=== PATIENT | female | born 1935 | race Caucasian/White ===

== ENCOUNTER 2024-02-25 11:50 | Emergency (ER) | payer MEDICARE, SELFPAY ==
[2024-02-25] VITALS (8 sets, daily range): BP systolic 142–184; BP diastolic 51–90; PULSE 60–66; BMI 26.7
[2024-02-25 12:21] LABS: % Basophils 0.3 % (0-2); % Eosinophils 2.6 % (0-6); % Immature Granulocytes 0.3 % (0-0.5); % Lymphocytes 9.2 % (20.5-51.1); % Monocytes 8.5 % (1.7-9.3); % Neutrophils 79.1 % (42.2-75.2); Absolute Eosinophils 0.2 10^3/uL (0-0.7); Absolute Lymphocytes 0.8 10^3/uL (1.2-3.4); Absolute Monocytes 0.7 10^3/uL (0.1-0.6); Absolute Neutrophils 6.9 10^3/uL (1.4-6.5); Hematocrit 37.5 % (37.0-47.0); Hemoglobin 12.8 g/dL (12.0-16.0); Mean Corp Hgb Conc. 34.1 g/dL (33.0-37.0); Mean Corpuscular Hgb 31.4 pg (27.0-31.0); Mean Corpuscular Volume 91.9 fL (81.0-99.0); Mean Platelet Volume 8.6 fL (7.4-10.4); Nucleated Red Blood Cells % 0 %; Platelet Count 355 10^3/uL (130-400); Red Blood Cell Count 4.08 10^6/uL (4.20-5.40); Red Cell Dist. Width 12.3 % (11.5-14.5); White Blood Cell Count 8.7 10^3/uL (4.8-10.8)
[2024-02-25 12:50] LABS: ALT (SGPT) 14 U/L (0-35); AST (SGOT) 29 U/L (14-36); Albumin 4.3 g/dl (3.5-5.0); Alkaline Phosphatase 64 U/L (38-126); Blood Urea Nitrogen 24 mg/dl (7-17); Calcium 9.6 mg/dl (8.4-10.2); Carbon Dioxide 24 mmol/L (22-30); Chloride 97 mmol/L (98-107); Estimated Creatinine Clearance 44 ml/min; Glucose 85 mg/dl (70-99); Potassium 4.4 mmol/L (3.5-5.1); Sodium 134 mmol/L (135-145); Total Bilirubin 0.5 mg/dl (0.2-1.3); Total Protein 6.7 g/dl (6.3-8.2); eGFR > 60.00
--- NOTE | 2024-02-25 13:16 | ED.GENMED ---
History of Present Illness
<Rosalva Conway PA-C - Last Filed: 02/27/24 08:43>
General
Chief Complaint: Fainting/Passed Out
Source: patient
Exam Limitations: none
Time Seen by Provider: 02/25/24 12:33
Nursing documentation reviewed up to this point in time: agreed with
History of Present Illness
History of Present Illness:
pt is a 88 y/o F with HTN, HLD, sees a lead pl sql developer at [place], no interventions previously
edema on furosemide 10 mg
here after syncope
says this monrning she was fasting for blood work
she did eat breakfast after but didn't really drink much liquid
then had 2 phone calls and bernabe tto have her hair cut
sat inthe chair, had her hair fully cut and was going to stand up and woke up to the EMS crew. she had no warning of passing out
says she passed out a few times a few years ago related to being on maxide. she no longer is on it
she is due for echo from her lead pl sql developer next week
she doesn't have any chronic heart conditions, heart block etc
she denies black stool, cp, headache, vomiting, dizziness.
she has not had any edema, weight gain
Past History
<Rosalva Conway PA-C - Last Filed: 02/27/24 08:43>
Past History
ED Past Medical History: GERD, HTN, Hypercholesterolemia and Other (Hiatel hernia)
ED Past Surgical History: Orthopedic (Bilateral knee replacements), Tonsilectomy and Other (Hiatal hernia, bilateral cataracts)
Social History
Tobacco: Former smoker
Alcohol: Occasional
Drug: None
Personal:
Living: assisted living ([facility])
Review of Systems
<Rosalva Conway PA-C - Last Filed: 02/27/24 08:43>
Review of Systems
Allergies reviewed?: Yes
All Other Systems: Not applicable
Phy Exam
<Rosalva Conway PA-C - Last Filed: 02/27/24 08:43>
Physical Exam
Physical Exam:
GENERAL: Alert , in no apparent distress, well appearing
EYE: pupils equal and reactive
NECK: Supple
ENT: o/p clr, mmm.
CARDIAC: Regular rate and rhythm .subtle 2/6 murmur; no JVD
LUNGS: Clear breath sounds bilaterally, no acute respiratory distress, no wheezes/rales/rhonchi
ABDOMEN: Soft, without focal tenderness, no r/g, no cvat, normal bowel sounds
heme neg light brown stool
NEUROLOGICAL: Alert and oriented, no focal neuro deficits
SKIN: Warm and dry, skin intact.
MUSCULOSKELETAL: No edema, well perfused. neg jonah's sign
PSYCH: Normal and appropriate interaction.
Course
<Rosalva Conway PA-C - Last Filed: 02/27/24 08:43>
Orders/Labs/Results
Orders:
Orders
02/25/24 11:57
EKG [Electrocardiogram (*1)] Urgent
Reason for Study: Tachycardia
EKG- Treatment ONCE
02/25/24 12:04
Complete Blood Count/With Diff Urgent
Comprehensive Metabolic Panel Urgent
02/25/24 13:26
Orthostatic VS- Treatment ONCE
0.9% Sodium Chloride 500 ml [Nss] 500 ml IV BOLUS
CR Chest - 2 Views Urgent
Comment:
Reason For Exam: syncope
02/25/24 13:32
NT-proBNP Urgent
Abnormal Lab Results
02/25/24
12:04
RBC 4.08 L 10^6/uL
(4.20-5.40)
MCH 31.4 H pg
(27.0-31.0)
Absolute Neuts (auto) 6.9 H 10^3/uL
(1.4-6.5)
Absolute Lymphs (auto) 0.8 L 10^3/uL
(1.2-3.4)
Absolute Monos (auto) 0.7 H 10^3/uL
(0.1-0.6)
Neutrophils % 79.1 H %
(42.2-75.2)
Lymphocytes % 9.2 L %
(20.5-51.1)
Sodium 134 L mmol/L
(135-145)
Chloride 97 L mmol/L
(98-107)
BUN 24 H mg/dl
(7-17)
02/25/24 12:04
02/25/24 12:04
Vital Signs
Initial and Last Documented VS:
Initial Vital Signs
BP
179/51
02/25/24 11:52
Last Documented Vital Signs
Temp Pulse Resp BP Pulse Ox
97.7 F 63 23 157/68 96
02/25/24 11:53 02/25/24 14:45 02/25/24 14:45 02/25/24 14:20 02/25/24 14:45
<Ambrosio Padron, DO - Last Filed: 02/25/24 13:36>
Orders/Labs/Results
Orders:
Orders
02/25/24 11:57
EKG [Electrocardiogram (*1)] Urgent
Reason for Study: Tachycardia
EKG- Treatment ONCE
02/25/24 12:04
Complete Blood Count/With Diff Urgent
Comprehensive Metabolic Panel Urgent
02/25/24 13:26
Orthostatic VS- Treatment ONCE
0.9% Sodium Chloride 500 ml [Nss] 500 ml IV BOLUS
CR Chest - 2 Views Urgent
Comment:
Reason For Exam: syncope
02/25/24 13:32
NT-proBNP Urgent
Abnormal Lab Results
02/25/24
12:04
RBC 4.08 L 10^6/uL
(4.20-5.40)
MCH 31.4 H pg
(27.0-31.0)
Absolute Neuts (auto) 6.9 H 10^3/uL
(1.4-6.5)
Absolute Lymphs (auto) 0.8 L 10^3/uL
(1.2-3.4)
Absolute Monos (auto) 0.7 H 10^3/uL
(0.1-0.6)
Neutrophils % 79.1 H %
(42.2-75.2)
Lymphocytes % 9.2 L %
(20.5-51.1)
Sodium 134 L mmol/L
(135-145)
Chloride 97 L mmol/L
(98-107)
BUN 24 H mg/dl
(7-17)
02/25/24 12:04
02/25/24 12:04
Vital Signs
Initial and Last Documented VS:
Initial Vital Signs
BP
179/51
02/25/24 11:52
Last Documented Vital Signs
Temp Pulse Resp BP Pulse Ox
97.7 F 63 23 157/68 96
02/25/24 11:53 02/25/24 14:45 02/25/24 14:45 02/25/24 14:20 02/25/24 14:45
<Rosalva Conway PA-C - Last Filed: 02/27/24 08:43>
MDM/Problems Addressed
Differential Diagnosis Includes:
syncope, , dehydration, vasovagal, heart block
MDM/Problems Addressed:
88 y/o F
h/o htn, hld ,CKD
no cad
here after syncope event this morning after sitting in a chair getting her hair cut
it seemed to occur just as she was giong to stand up from sitting
she had no preceding symptoms
no injury, she passed out into the chair; she now feels well
she didn't drink much liquid with breakfast
pt has passed out preiously related to maxide dose and is no longer on that
she has appt for echo for routine purposes next week at [place]
she is asymptoamtic now
she never had chest pain
no edema
looks well
heme neg brown stool
bun elevated
likely prerenal azotemia
seen by ed attending
ekg intiially in the field looked possibly concerning for heart block - but then ran strips which looked regular, 1st degree block, pacs
no heart block on ekg here
pt is very eager to go home
will give small bolus of fluids
orthostatics
cxr and if neg d/c
<Rosalva Conway PA-C - Last Filed: 02/27/24 08:43>
*Critical Care Note
Total Time (30-74mins, 75-104mins- exclusive of procedures): Not Applicable
ED Attending Note
<Rosalva Conway PA-C - Last Filed: 02/27/24 08:43>
-
Portions of this chart may have been created with voice recognition software.� Occasional wrong word or��sound alike� substitutions may have occurred due to the inherent limitations of voice recognition software.
<Ambrosio Padron DO - Last Filed: 02/25/24 13:36>
ED Attending Note
Patient seen and examined by attending physician: Yes
I performed the substantive portion of visit, reviewed & personally made and approve the management plan that is documented in note by myself or TAVARES.: Yes
I performed a history and physical exam of patient and discussed management with resident, I reviewed resident's note and agree with documented findings and plan of care.: Yes
ED Attending Note:
I evaluated patient at bedside and reviewed EKGs. She does have a very soft murmur in the right upper sternal border suggestive of aortic stenosis�she has an upcoming echo through [facility]. She is not known to any of the lead pl sql developer Josie.
EKG is relatively unremarkable with no evidence of block and there is no evidence of block on the cardiac monitoring throughout her stay in the emergency department. She is very eager to go home and is very well-appearing.
Discharge Plan
Departure
Patient Disposition: Home (Routine Discharge)
Date of Disposition: 02/25/24
Time of Disposition: 14:39
Patient with high blood pressure during this ER visit?: No
Condition: Fair
Covid-19: Not Applicable
Discharge Problem:
Syncope
Instructions: Syncope (Fainting) (DC)
Prescriptions:
No Action
esomeprazole magnesium 40 MG capsule,delayed release(DR/EC)
40 mg PO DAILY
psyllium husk (aspartame) [Metamucil Fiber Singles] 1 PACKET powder in packet
1 packet PO DAILY
multivitamin with folic acid [Tab-A-Mikey] 1 TABLET tablet
1 tab PO DAILY
sennosides-docusate sodium 1 TABLET tablet
1 tab PO BID 0RF
amlodipine 5 MG tablet
5 mg PO DAILY 0RF
calcium carbonate [Antacid (calcium carbonate)] 1 TABLET tablet,chewable
2 tab PO Q4HPRN PRN (Reason: indigestion) 0RF
oxycodone 5 MG tablet
5 mg PO Q4HPRN PRN (Reason: moderate/severe pain) 0RF
furosemide [Lasix] 20 MG tablet
10 mg PO DAILY 30 Days Qty: 30 0RF
Referrals:
Gareth Bach MD [Family Provider] - Follow up in 2-3 days
Activity Restrictions/Additional Instructions:
WE ARE NOT SURE WHY YOU PASSED OUT
YOU COULD BE MILDLY DEHYDRATED
STAY HYDRATED TODAY/EAT WELL
YOU SHOULD CALL YOUR DOUGH PANNER TO BE SEEN SOON
RETURN TO THE ER FOR ANY RECURRENT EPISODES. CHEST PAIN, SHORTNESS OF BREATH OR ANY CONCERNS.
Interventions
Interventions:
*Risk Screen - Suicide Last Done: 02/25/24 11:53
*General Assessment Last Done: 02/25/24 11:53
*Neglect/Abuse Screening Last Done: 02/25/24 11:53
ED- Fall Risk Assessment Last Done: 02/25/24 11:53
*ED COVID-19 Vaccine History Last Done: 02/25/24 11:53
*Nursing Disposition Last Done: 02/25/24 16:28
ED- Cardiac Assessment Last Done: 02/25/24 12:06
ED- Neurological Assessment Last Done: 02/25/24 11:59
Discharge Date and Time
Discharge Date/Time: 02/25/24 16:29
Print Language: SOMALI
[2024-02-25] MEDS: NSS 500 IV (13:34)
[2024-02-25 14:07] LABS: NT-proBNP 377 pg/ml
== END 2024-02-25 16:29 | disposition home or self-care (01) ==
LOC: EMR 11:50
PROVIDERS: Emergency Medicine; Physician Assistant; EMERGENCY PHYSICIAN Emergency Medicine; FAMILY PHYSICIAN Internal Medicine Geriatric Medicine
DX: R55 Syncope and collapse (principal); I10 Essential (primary) hypertension; E78.00 Pure hypercholesterolemia, unspecified; Z87.891 Personal history of nicotine dependence
CPT/HCPCS: 99285; 71046; 80053; 83880; 85025; 93005

== ENCOUNTER 2024-05-11 15:34 | Inpatient (IN) | payer MEDICARE, SELFPAY ==
[2024-05-11] VITALS (8 sets, daily range): BP systolic 142–195; BP diastolic 58–90; BMI 24.8
[2024-05-11 12:21] LABS: Glucose - Point of Care 118 mg/dl (70-99)
--- NOTE | 2024-05-11 12:25 | ED.GENMED ---
History of Present Illness
General
Chief Complaint: Fainting/Passed Out
Source: patient
Time Seen by Provider: 05/11/24 12:23
Nursing documentation reviewed up to this point in time: agreed with
History of Present Illness
History of Present Illness:
88-year-old female presents from [facility]. On my exam neurology is already at bedside stroke was called previous to my exam. Patient reportedly had a syncopal episode while in the bathroom at [facility] EMS was called she did not hit head.
After arriving here to the ER however patient started not being able to get her words out stroke alert was called. Neurology at bedside.
Patient back from CAT scan during my exam. Patient awake alert she has no focal deficits at this time. She does remember not being able to get her words out. She reports this happened once in the past.
She has no complaints now.
Regarding patient's initial complaint she reports she was sitting on the toilet having a bowel movement and her own apartment at [facility] and felt dizzy and pressed the call button. Apparently she passed out on the toilet and was sent in by
EMS. She had no fall.
She denies any lightheadedness now. She did eat breakfast this morning.
Past History
Past History
ED Past Medical History: GERD, HTN, Hypercholesterolemia and Other (Hiatel hernia)
ED Past Surgical History: Orthopedic (Bilateral knee replacements), Tonsilectomy and Other (Hiatal hernia, bilateral cataracts)
Social History
Tobacco: Former smoker
Alcohol: Occasional
Drug: None
Personal:
Living: assisted living ([facility])
Review of Systems
Review of Systems
Allergies reviewed?: Yes
All Other Systems: ROS reviewed and negative except as documented in HPI and ROS
Constitutional: Reports no symptoms
EENT: Reports no symptoms
Respiratory: Reports no symptoms
Cardiac: Reports no symptoms
ABD/GI: Reports no symptoms
: Reports no symptoms
Musculoskeletal: Reports no symptoms
Skin: Reports no symptoms
Neurological: Reports other (difficulty getting words out as per nurses at bedside here in the ED)
Psychiatric: Reports no symptoms
Phy Exam
General Physical Exam
General Presentation: no apparent distress
General age: appears stated age
General Skin: warm and dry
General Habitus: normal
General Mental: alert
General Hydration: appears well hydrated
Cardiovascular Exam
Cardiovascular Exam: regular rate/rhythm, no murmur and normal peripheral pulses
Pulmonary Exam
Pulmonary Exam: lungs clear and no respiratory distress
Neurological Exam
Neurological Exam: alert, oriented x3, no motor deficits and no sensory deficits
NIH Stroke Score
Level of Consciousness: 0 - Alert
LOC questions: 0-Answers both correctly
LOC Commands: 0-Performs both correctly
Best Gaze: 0-Normal
Visual Carty: 0=Normal, no visual loss
Facial palsy: 0=Normal, symmetrical
Motor - Right Arm: 0=No drift 10 seconds
Motor - Left Arm: 0=No drift 10 seconds
Motor - Right Le-No drift 5 seconds
Motor - Left Le-No drift 5 seconds
Limb Ataxia: 0-Absent
Sensation: 0-Normal
Best Language: 0-No aphasia
Dysarthria: 0-Normal
Extinction and Inattention: 0-No abnormality
Total Score:: 0
Musculoskeletal Exam
Musculoskeletal Exam: full ROM
Skin Exam
Skin Exam: normal color and warm/dry
Psychiatric Exam
Psychiatric Exam: normal mood/affect
Course
Orders/Labs/Results
Orders:
Orders
05/11/24 12:18
Electrocardiogram (*1) Urgent
Reason for Study: Other
Other Reason for Exam: Possible Stroke
Bedside Glucose- Treatment ONCE
EKG- Treatment ONCE
O2 Therapy [RESP] Urgent
Titrate/Wean O2 to maintain O2 sat greater than (%): 93
Special Instructions: MAINTAIN CONTINUOUS O2 SATS > OR = 93%
05/11/24 12:22
CT HEAD STROKE ALERT W/o Cont Urgent
Comment:
Reason For Exam: stroke r/o
05/11/24 12:23
Complete Blood Count/With Diff Urgent
Comprehensive Metabolic Panel Urgent
PTT Urgent
Prothrombin Time Urgent
Troponin I Urgent
05/11/24 12:45
EEG Routine Routine
Reason for Exam: ? CPS
Neurology Consult:: DR. ASHLEY
05/11/24 12:53
UA Reflex to Culture [Urinalysis Reflex To Culture] Urgent
Abnormal Lab Results
05/11/24 05/11/24
12:20 12:23
RBC 4.10 L 10^6/uL
(4.20-5.40)
MCH 31.2 H pg
(27.0-31.0)
Absolute Lymphs (auto) 0.8 L 10^3/uL
(1.2-3.4)
Neutrophils % 75.3 H %
(42.2-75.2)
Lymphocytes % 13.0 L %
(20.5-51.1)
Sodium 128 L mmol/L
(135-145)
Chloride 94 L mmol/L
(98-107)
BUN 21 H mg/dl
(7-17)
Glucose 119 H mg/dl
(70-99)
Total Protein 6.0 L g/dl
(6.3-8.2)
POC Glucose 118 H mg/dl
(70-99)
05/11/24 12:23
05/11/24 12:23
Vital Signs
Initial and Last Documented VS:
Initial Vital Signs
Pulse Ox
99
05/11/24 12:15
Last Documented Vital Signs
Temp Pulse Resp BP Pulse Ox
97.7 F 57 21 147/82 96
05/11/24 12:16 05/11/24 12:30 05/11/24 12:30 05/11/24 12:19 05/11/24 12:46
MDM/Problems Addressed
MDM/Problems Addressed:
Patient is an 88-year-old female who was sent for syncopal episode while on the toilet at [facility] and prior to me entering the room stroke alert was called. Patient had an episode for approximately 5 minutes of expressive aphasia. Neurology
was called to bedside patient had a CAT scan which was unremarkable. Presently on my exam patient is awake alert in no acute distress with a NIH score of 0 with no neurological deficits. As per neurology will plan to get EEG.
Patient has no complaints of chest pain shortness of breath. She does recall feeling dizzy on the toilet which is what prompted her to come to the ER. She did have a witnessed syncopal episode however by staff at [facility]. EKG shows a heart
rate of 54. No complaints of chest pain or shortness of breath prior to syncope. She did feel lightheaded. She did eat breakfast this morning. She has no recent illness. She is afebrile with a normal white count stable hemoglobin, sodium
slightly low at 128 looks like patient is on Lasix, normal creatinine
Will admit to the hospitalist for syncopal episode, hyponatremia and episode of expressive aphasia which has since resolved. Neuro recommends EEG.
Discussed with admitting hospitalist
Chronic conditions affecting care:
Hypertension renal failure hyperlipidemia
*Critical Care Note
Total Time (30-74mins, 75-104mins- exclusive of procedures): Not Applicable
Patient Management
Discussion with other providers: Heel Lining Paster (Neuro DR Ashley )
ED Attending Note
-
Portions of this chart may have been created with voice recognition software.� Occasional wrong word or��sound alike� substitutions may have occurred due to the inherent limitations of voice recognition software.
Discharge Plan
Departure
Patient Disposition: Admit
Date of Disposition: 05/11/24
Time of Disposition: 13:20
Admit to: Telemetry
Admit to doctor: hospitalist
Presentation/result/management discussed w/ accepting MD/DO: Hospitalist
Patient with high blood pressure during this ER visit?: Yes
Condition: Fair
Covid-19: Not Applicable
Discharge Problem:
Hyponatremia, Syncope, expressive aphasia resolved
Prescriptions:
No Action
esomeprazole magnesium 40 MG capsule,delayed release(DR/EC)
40 mg PO DAILY
psyllium husk (aspartame) [Metamucil Fiber Singles] 1 PACKET powder in packet
1 packet PO DAILY
multivitamin with folic acid [Tab-A-Mikey] 1 TABLET tablet
1 tab PO DAILY
sennosides-docusate sodium 1 TABLET tablet
1 tab PO BID 0RF
amlodipine 5 MG tablet
5 mg PO DAILY 0RF
calcium carbonate [Antacid (calcium carbonate)] 1 TABLET tablet,chewable
2 tab PO Q4HPRN PRN (Reason: indigestion) 0RF
oxycodone 5 MG tablet
5 mg PO Q4HPRN PRN (Reason: moderate/severe pain) 0RF
furosemide [Lasix] 20 MG tablet
10 mg PO DAILY 30 Days Qty: 30 0RF
Interventions
Interventions:
*Risk Screen - Suicide Last Done: 05/11/24 12:16
*General Assessment Last Done: 05/11/24 12:16
ED- Fall Risk Assessment Last Done: 05/11/24 12:45
*ED COVID-19 Vaccine History Last Done: 05/11/24 12:44
ED- Cardiac Assessment Last Done: 05/11/24 12:41
ED- Neurological Assessment Last Done: 05/11/24 12:36
Discharge Date and Time
Print Language: TAJIK
[2024-05-11 12:35] LABS: % Basophils 0.6 % (0-2); % Eosinophils 2.6 % (0-6); % Immature Granulocytes 0.3 % (0-0.5); % Monocytes 8.2 % (1.7-9.3); % Neutrophils 75.3 % (42.2-75.2); Absolute Eosinophils 0.2 10^3/uL (0-0.7); Absolute Lymphocytes 0.8 10^3/uL (1.2-3.4); Absolute Monocytes 0.5 10^3/uL (0.1-0.6); Absolute Neutrophils 4.8 10^3/uL (1.4-6.5); Hematocrit 38.6 % (37.0-47.0); Hemoglobin 12.8 g/dL (12.0-16.0); Mean Corp Hgb Conc. 33.2 g/dL (33.0-37.0); Mean Corpuscular Hgb 31.2 pg (27.0-31.0); Mean Corpuscular Volume 94.1 fL (81.0-99.0); Mean Platelet Volume 8.6 fL (7.4-10.4); Nucleated Red Blood Cells % 0 %; Platelet Count 297 10^3/uL (130-400); Red Cell Dist. Width 12.2 % (11.5-14.5); White Blood Cell Count 6.4 10^3/uL (4.8-10.8)
[2024-05-11 12:48] LABS: INR 1.03; PT 13.8 Sec (11.4-14.6)
[2024-05-11 12:49] LABS: APTT 25.9 Sec (23.4-35.0)
[2024-05-11 13:02] LABS: ALT (SGPT) 16 U/L (0-35); AST (SGOT) 27 U/L (14-36); Albumin 3.7 g/dl (3.5-5.0); Alkaline Phosphatase 53 U/L (38-126); Blood Urea Nitrogen 21 mg/dl (7-17); Calcium 8.6 mg/dl (8.4-10.2); Carbon Dioxide 26 mmol/L (22-30); Chloride 94 mmol/L (98-107); Glucose 119 mg/dl (70-99); Potassium 4.4 mmol/L (3.5-5.1); Sodium 128 mmol/L (135-145); Total Bilirubin 0.6 mg/dl (0.2-1.3); eGFR > 60.00
[2024-05-11 13:12] LABS: Troponin I 0.016 ng/ml
--- NOTE | 2024-05-11 13:15 | PTCARENOTE ---
pt arrived via EMS with normal speech. while turning and changing pt, pt started with expressive aphasia for approx. 5 min. stroke alert called.
pt's speech now back to normal. pt conversant and appropriate at this time. GCS 15.
--- NOTE | 2024-05-11 13:51 | CON.NEURO4 ---
Addendum entered and electronically signed by Jose Rhodes MD 05/11/24 15:04:
Studies reviewed.
I have personally examined the patient. I reviewed and agree with the LIBRARY SUPERVISOR's Note.
My addenda:
Awake, alert, interactive. No acute distress.
Speech intact.
Follows 2-step requests w/o difficulty. No tremor.
Extra-ocular movements grossly intact.
Facial movements full and symmetric. Hearing intact to normal conversational volume.
Normal UE movements bilaterally.
Neck: full ROM.
Chest: no dyspnea
Heart: no JVD
Ext: (-) Clubbing, (-) Cyanosis, (-) Edema
IMPRESSIONS/RECOMMENDATIONS:
Abrupt onset of aphasia followed by syncopal episode on the toilet. The patient had her syncope after arrival to the emergency department
Differential diagnosis for her initial episode of syncope while on the toilet includes vasovagal syncope as well as orthostatic hypotension
Differential diagnosis for the patient's aphasia while in the emergency department and inactive includes hyponatremia induced focal onset seizure
Patient was not a candidate for tenecteplase or intra-arterial thrombectomy due to NIH stroke scale less than 6
Remediate hyponatremia
Consider EEG if additional metabolic abnormalities are not discovered
Follow orthostatic blood pressures
Follow-up as outpatient with her usual search engine optimizer
No indication at this time for additional antiplatelet or anticoagulant therapies
D/W patient
All questions answered.
Will continue to follow patient as needed.
Original Note:
Documented by User: MOISES Razo 05/11/24 14:15
Consultation - Neurology 4
-
CONSULTING PHYSICIAN: Dr. Jose Rhodes
REFERRING PHYSICIAN: MOISES Naranjo
DICTATED BY: MOISES Razo
DATE/TIME OF REQUEST: 05/11/2024
DATE/TIME OF CONSULTATION: 05/11/2024
Reason for Consultation: stroke alert
History of Present Illness:
This is a 88-year-old female patient with a history of hypertension, syncope and back pain who presented to the ER after syncopal episode while on the toilet. She was brought in by EMS. After she was settled on the stretcher she had 5 minutes of
trouble with getting her words out. A stroke alert was called. She then returned to baseline. She does report that she has had trouble with her speech in he past and hs resolved spontaneously. She has had a history of syncope and was last seen
02/25/2024 in our ER for this. She does follow up with a search engine optimizer from [place]. Today she reports she was sitting on the toilet straining to have a BM. She started feeling dizzy. When the dizziness did not resolve she was able to get her
walker and pull the cord for assistance. Per EMS staff at [facility] reports she was in and out of consciousness a few times. When EMS arrived she was at baseline. She remembers arriving in the ER. She remembers having difficulty with her
words. She denied any other associated headache,trouble with her vision, numbness, tingling or weakness. She has no known history of seizure. Daily ASA is not listed on her medication list.
Past Medical History: HTN, back pain, constipation, HLD
Surgical History: b/l knee replacements, bilateral cataracts, tonsillectomy, hiatal hernia repair
Family History: reviewed and non-contributory
Social History: Pt lives at [facility] in an independent apartment
Allergies: see below
Home Medications: see below
Review of Symptoms:
Patient denies any fever, headache, chest pain, shortness of breath, GI or symptoms.
Vital Signs: see below
Physical Exam:
The patient is afebrile, heart sounds S1 and S2 are regular, and chest is clear to auscultation bilaterally.
Neurologic Examination:
The patient is awake, alert and oriented x 3. She is able to follow commands and answer questions appropriately. There is no aphasia or dysarthria. On cranial nerve assessment, pupils are 3 mm bilateral, round and reactive to light and
accommodation. Visual valera are full. Extraocular movements are intact. Facial sensations are intact and bilaterally symmetrical, there is no facial asymmetry. Hearing is mildly reduced bilaterally to normal conversation volume. Tongue palate and
uvula are midline. Sternocleidomastoid strengths are full bilaterally. Motor strengths are 5/5 bilateral upper and lower extremities on medical research Andreafski scale. There is no drift or involuntary movement noted. Deep tendon reflexes are trace
bilateral upper and lower extremities and Babinski is absent bilaterally. Sensations of pain, touch, temperature and vibration are intact and bilaterally symmetrical. There was no extinction noted on double simultaneous stimulation. Coordination is
intact by finger to nose bilaterally.
Lab Results: see below
Neuro Imaging:
CT Head- No acute intracranial abnormality.
Mild cerebral volume loss and microvascular ischemic changes, as above.
Impression:
ROSALBA MARCH is a 88 year old F who has presented to the hospital s/p syncope followed by an episode of transient aphasia.
Differentials for the patient's presentation include:
-hyponatremia as low Na revealed on today's labs
-seizure
-fluctuations in blood pressure
-less likely TIA or stroke
Recommendations:
-consider EEG
-continue to closely monitor sodium levels
-consider additional imaging
-seizure precautions
-continue Neuro checks per unit protocol
Discussed patient care with nursing, Dr. Rhodes patient and Perla Eason LIBRARY SUPERVISOR from ER
Medication and Allergies
Home Medications
Home Medications
�Medication �Instructions �Recorded
esomeprazole magnesium 40 mg 40 mg PO DAILY 12/07/18
capsule,delayed release
multivitamin with folic acid 400 1 tab PO DAILY 06/26/21
mcg tablet (Tab-A-Mikey)
furosemide 20 mg tablet (Lasix) 10 mg (1/2 x 20 mg) PO DAILY 30 06/30/21
days #30 tabs
acetaminophen 500 mg tablet 1,000 mg PO BID 05/11/24
(Tylenol Extra Strength)
amlodipine 5 mg tablet 10 mg PO DAILY 05/11/24
calcium 600 mg (as carbonate)-vit 1 tab PO DAILY 05/11/24
D3 20 mcg (800 unit) chewable
tablet (Caltrate plus D)
cholecalciferol (vitamin D3) 50 50 mcg PO DAILY 05/11/24
mcg (2,000 unit) tablet (Vitamin
D3)
docusate sodium 100 mg capsule 400 mg PO HS 05/11/24
(Colace)
lisinopril 5 mg tablet 5 mg PO DAILY 05/11/24
psyllium husk 0.52 gram capsule 2.08 g PO HS 05/11/24
sennosides 8.6 mg tablet (senna) 43 mg PO HS 05/11/24
tamsulosin 0.4 mg capsule (Flomax) 0.4 mg PO HS 05/11/24
Allergies
Allergies
Allergy/AdvReac Type Severity Reaction Status Date / Time
losartan Allergy Unknown Unknown Verified 05/11/24 12:11
hydrochlorothiazide Allergy Unknown Verified 05/11/24 12:11
[From Maxzide]
irbesartan [From Avapro] Allergy Unknown Verified 05/11/24 12:11
tramadol Allergy Unknown Verified 05/11/24 12:11
triamterene [From Maxzide] Allergy Unknown Verified 05/11/24 12:11
Vital Signs / Labs
-
Vital Signs and Labs:
Temp Pulse Resp BP Pulse Ox
97.7 F 63 23 147/82 100
05/11/24 12:16 05/11/24 13:45 05/11/24 13:45 05/11/24 12:19 05/11/24 13:45
05/11/24 12:23
05/11/24 12:23
05/11/24 05/11/24
12:20 12:23
RBC 4.10 L
MCH 31.2 H
Absolute Lymphs (auto) 0.8 L
Neutrophils % 75.3 H
Lymphocytes % 13.0 L
Sodium 128 L
Chloride 94 L
BUN 21 H
Glucose 119 H
Total Protein 6.0 L
POC Glucose 118 H
NIH Stroke Score
NIH Stroke Score
Level of Consciousness: 0 - Alert
LOC Questions: 0-Answers both correctly
LOC Commands: 0-Performs both correctly
Best Horizontal Gaze: 0-Normal
Visual Valera: 0=Normal, no visual loss
Facial Palsy: 0=Normal, symmetrical
Motor - Right Arm: 0=No drift 10 seconds
Motor - Left Arm: 0=No drift 10 seconds
Motor - Right Le-No drift 5 seconds
Motor - Left Le-No drift 5 seconds
Limb Ataxia: 0-Absent
Sensation: 0-Normal
Best Language: 0-No aphasia
Dysarthria: 0-Normal
Extinction and Inattention: 0-No abnormality
Total Score:: 0

Documented by User: Jose Rhodes MD 05/11/24 14:57
NIH Stroke Score
NIH Stroke Score
Total Score:: 0
[2024-05-11] MEDS: NSS 500 IV (13:58)
--- NOTE | 2024-05-11 14:24 | HPS.HSE ---
Addendum entered and electronically signed by Frank Smyth MD 05/12/24 00:53:
Attending Addendum-
I performed a history and physical exam of the patient and discussed his management with the resident. I reviewed the resident's note and agree with the documented findings and plan of care CC/HPI- Patient present from [facility] due to syncope
event while on toilet. No Cp SOB prior. Had episode of dysarthria in ED stoke alert called. Currently feels weak and scared. Wants to go home. Full 12 point ROS reviewed and negative except as documented Exam- vitals reviewed in EMR GEN-NAD heart
RRR lungs clear abd osft L Enoe alexandria Neuro AAo x 3 MS 10/19 sensation intact
Plan:
# Syncope
- vasovagal likely as during defecation
- cont stool softeners
- r/o orthostasis
- patient is fluid restricted on lasix and on flomax
- DC flomax hold lasix
- EEG- r/o seizure
- check carotid Doppler
- Head CT- no acute abnormalities
- SF syncope- low risk
- EKG reviewed 1rst degree heart block- likely not correlated
- monitor on tele
# Hyponatremia
- appears hypovolemic
- cont to monitor
- restart nacl tabs
- hold lasix
# HTN-
- cont norvasc and lisinopril
# GERD-
- cont esomeprazole
DVTp- lovenox
Dispo DC back to [facility] [place] in am
ACP
Patient consented to discuss, was alone, time spent explanation of advance directives, changes in health status, patient�s health care wishes if the patient becomes unable to make health decisions, goals of care, code status, and prognosis- 15
minutes
Time spent coordinating care, review of plan of care with resident, personally reviewed previous records in EMR, med rec, labs, radiology, d/w nursing, family total time documented is exclusive of any additional time listed that was spent in advance
care planning discussion -� 75 minutes
Original Note:
Family Physician
-
Family Physician: Gareth Bach
Chief Complaint
-
Syncope
History of Present Illness
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 Today in the morning when she woke up she was feeling fine but when she went to use the
restroom, she started feeling very dizzy, she sat down on the floor with help of her roller walker and pulled the chain asking for help. She does not recall events after that until EMS arrived. She knew that she was dizzy and she is about to pass
out, she did not have any chest pain, palpitations, blurring of vision, excessive sweating, or headaches before or after the episode. She also reports that she did not strain to pass her bowel movement, and was not wet when she woke up. Per EMS,
the staff at [facility] reported that she had episodes of waxing and waning levels of consciousness before the EMS arrived to the scene but she was doing fine and there is with the EMS when they arrived to the scene. After coming to the hospital
in the ER patient stated that she had an episode of dysarthria where she evidently noticed that she is talking and jargon that does not make sense. Of note she had an episode of dizziness after having a she had an episode of low-salt haircut in
February 2024 for which she was evaluated in the [facility] ER. Patient also stated that on Saturday or Saturday she had an episode of sudden onset lower abdominal pain with mild difficulty in passing urine and an hour later her abdominal
pain is relieved with passage of urine. However this episode did not recur. She also thinks her Nodosis could have caused her dizziness as she has been feeling this way every time she takes Nodosis.
She denies having fever, chills, sick contact, focal weakness, paresthesias.
Medical History
Past Medical History
Past Medical History: Reports GERD, HTN, Hypercholesterolemia, Hypothyroidism and Other (SIADH)
Past Surgical History: Reports None
Social History
Tobacco: Non-smoker
Alcohol: None
Drug: None
Personal: Single
Living: Other (In independent apartment at [address].)
Employment: Retired
Family History
Family History: Not pertinent
Allergies / Home Medications
Allergies reflects when Allergies were last updated in [facility].
Home Medications with original date entered in [facility]
Allergy/Medication List:
Allergies
Allergy/AdvReac Type Severity Reaction Status Date / Time
losartan Allergy Unknown Unknown Verified 05/11/24 12:11
hydrochlorothiazide Allergy Unknown Verified 05/11/24 12:11
[From Maxzide]
irbesartan [From Avapro] Allergy Unknown Verified 05/11/24 12:11
tramadol Allergy Unknown Verified 05/11/24 12:11
triamterene [From Maxzide] Allergy Unknown Verified 05/11/24 12:11
Home Medications
esomeprazole magnesium 40 mg capsule,delayed release 40 mg PO DAILY 12/07/18
multivitamin with folic acid 400 mcg tablet (Tab-A-Mikey) 1 tab PO DAILY 06/26/21
furosemide 20 mg tablet (Lasix) 10 mg (1/2 x 20 mg) PO DAILY 30 days #30 tabs 06/30/21
acetaminophen 500 mg tablet (Tylenol Extra Strength) 1,000 mg PO BID 05/11/24
amlodipine 5 mg tablet 10 mg PO DAILY 05/11/24
calcium 600 mg (as carbonate)-vit D3 20 mcg (800 unit) chewable tablet (Caltrate plus D) 1 tab PO DAILY 05/11/24
cholecalciferol (vitamin D3) 50 mcg (2,000 unit) tablet (Vitamin D3) 50 mcg PO DAILY 05/11/24
docusate sodium 100 mg capsule (Colace) 400 mg PO HS 05/11/24
lisinopril 5 mg tablet 5 mg PO DAILY 05/11/24
psyllium husk 0.52 gram capsule 2.08 g PO HS 05/11/24
sennosides 8.6 mg tablet (senna) 43 mg PO HS 05/11/24
sodium chloride 1 gram tablet 1,000 mg PO DAILY 05/11/24
tamsulosin 0.4 mg capsule (Flomax) 0.4 mg PO HS 05/11/24
Review of Systems
-
History Source: Patient
A 12 point ROS was completed and negative except as noted: No
Constitutional: Reports Fatigue and Chills
EENT: Reports No Symptoms
Respiratory: Reports Trouble Breathing; Denies Cough
Cardiac: Reports Syncope; Denies Chest Pain, Diaphoresis or Palpitations
Abdomen/GI: Reports Constipated; Denies Abdominal Pain, Nausea, Vomiting, Diarrhea or Pain
: Reports No Symptoms
Musculoskeletal: Reports No Symptoms
Skin: Reports No Symptoms
Neurological: Reports Dizzy and Weakness
Endocrine: Reports No Symptoms
Hematologic/Lymphatic: Reports No Symptoms
Psych: Reports No Symptoms
Physical Exam
Vital Signs
Vital Signs
Temp Pulse Resp BP Pulse Ox
97.7 F 63 23 147/82 100
05/11/24 12:16 05/11/24 13:45 05/11/24 13:45 05/11/24 12:19 05/11/24 13:45
Physical Exam
General: No Apparent Distress, Comfortable and Conversant
HEENT: Moist mucous membranes and Atraumatic
Respiratory: Clear; No Wheezes, Rales or Rhonchi
Cardiac: S1/S2 and Regular Rhythm; No Murmur, Rub or Gallop
GI: Soft, Non Tender, Non Distended and Normal Bowel Sounds
Genito-urinary: Clear Urine
Musculoskeletal: No Clubbing, No Cyanosis and No Edema
Skin: Warm
Neuro: AO x 3
Hematologic/Lymphatic: Other
Psych: Calm
Laboratory Results
-
05/11/24 12:23
05/11/24 12:23
Laboratory Results
PT 13.8 Sec (11.4-14.6) 05/11/24 12:23
INR 1.03 05/11/24 12:23
APTT 25.9 Sec (23.4-35.0) 05/11/24 12:23
Total Bilirubin 0.6 mg/dl (0.2-1.3) 05/11/24 12:23
AST 27 U/L (14-36) 05/11/24 12:23
ALT 16 U/L (0-35) 05/11/24 12:23
Alkaline Phosphatase 53 U/L (38-126) 05/11/24 12:23
Troponin I 0.016 ng/ml 05/11/24 12:23
Data Reviewed
-
CT Scan: Image Personally Visualized and interpreted, Report Reviewed by me and Discussed with Physician
Medical Tests (Nuc Med, Echo, EKG etc): Image Personally Visualized and interpreted, Report Reviewed by me and Discussed with Physician
Lab Data: Labs Reviewed by me and Discussed with Physician
Old Records: Requested
Impression/Plan
-
IMPRESSION: 88-year-old female with PMHx significant for SIADH, HTN, constipation, HLD presents to the hospital for evaluation of syncopal episode.
PLAN:
Syncope -
Suspect cardiac > neurological, EGSYS score -6 points.
First-degree AV block on EKG, likely symptomatic?
Telemetry monitoring, consider echocardiogram.
neuro consulted, neuro on board appreciated inputs.
CT head obtained negative.
Neuro needs further workup-EEG greater than 1 hour. Neurology defers antiplatelet or anticoagulation therapy as there is no indication at this point of time.
NIH stroke score 0
Hyponatremia -
Acute on chronic, patient is on no doses 1000 mg every day.
Serum sodium at 129, fluid status-euvolemic
Euvolemic hyponatremia, continue trending electrolytes.
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
Hypertension-
On lisinopril 5 mg.
On amlodipine 10 mg
Questionable history of heart failure-
Lasix 10 mg, obtain echocardiogram.
Constipation-
On psyllium husk, and senna.
Hyperlipidemia-
Not on statins.
GERD-on esomeprazole 40 mg daily
Urinary incontinence-on tamsulosin 0.4 once a day
DVT prophylaxis-
Enoxaparin 40 SQ night
CODE STATUS-DO NOT RESUSCITATE
Healthcare power of civil attorney-cousin July Rosales
[2024-05-11 14:56] LABS: Urine Albumin 1+ (Neg - Trace); Urine Bilirubin Negative (Negative); Urine Character Clear (Clear); Urine Color Yellow; Urine Glucose Negative (Negative); Urine Ketone Negative (Negative); Urine Leukocyte Negative (Negative); Urine Nitrite Negative (Negative); Urine Occult Blood Negative (Negative); Urine Urobilinogen Negative (Neg - 1+)
[2024-05-11 15:17] LABS: Urine Squamous Cell 0-2 /LPF (Few)
[2024-05-11 15:18] LABS: Urine Amorphous Seen
[2024-05-11 15:19] LABS: Urine Red Blood Cell 0-2 /HPF (0-2); Urine White Cell 0-2 /HPF (0-5)
[2024-05-11 17:27] LABS: Glucose - Point of Care 102 mg/dl (70-99)
--- NOTE | 2024-05-11 17:29 | PTOTSP ---
ST Acute Care Evaluations
Pt presents with speech and language skills that appear WFL at this time. Pt also presents with oral, pharyngeal, and esophageal parameters that appear WFL for safe PO intake of all solids and liquids. No skilled EDITORIAL MANAGER services deemed warranted at
this time.
Recommendations:
- Continue with regular solids, thin liquids, meds as tolerated.
- General aspiration & reflux precautions.
- EDITORIAL MANAGER to sign off. Please re-consult if pt presents with any acute changes. Thank you.
[2024-05-11] MEDS: LOVENOX 40 MG SC (17:31)
[2024-05-11] MEDS: APRESOLINE 5 MG IV (17:47)
[2024-05-11] MEDS: PROTONIX 40 MG PO (17:49)
[2024-05-11] MEDS: COLACE 400 MG PO (20:56)
[2024-05-11] MEDS: FLOMAX 0.4 MG PO (20:56)
[2024-05-11] MEDS: SENOKOT 43 MG PO (20:56)
[2024-05-11] MEDS: TYLENOL 1000 MG PO (20:56)
[2024-05-12] VITALS (9 sets, daily range): BP systolic 120–178; BP diastolic 57–76; PULSE 59–66; O2SAT 96; BMI 24.6
[2024-05-12 07:17] LABS: Hematocrit 32.1 % (37.0-47.0); Hemoglobin 11.2 g/dL (12.0-16.0); Mean Corp Hgb Conc. 34.9 g/dL (33.0-37.0); Mean Corpuscular Hgb 32.3 pg (27.0-31.0); Mean Corpuscular Volume 92.5 fL (81.0-99.0); Mean Platelet Volume 8.8 fL (7.4-10.4); Platelet Count 279 10^3/uL (130-400); Red Blood Cell Count 3.47 10^6/uL (4.20-5.40); Red Cell Dist. Width 12.2 % (11.5-14.5); White Blood Cell Count 5.7 10^3/uL (4.8-10.8)
[2024-05-12 07:29] LABS: ALT (SGPT) 15 U/L (0-35); AST (SGOT) 23 U/L (14-36); Albumin 3.2 g/dl (3.5-5.0); Alkaline Phosphatase 55 U/L (38-126); Blood Urea Nitrogen 21 mg/dl (7-17); Calcium 8.7 mg/dl (8.4-10.2); Carbon Dioxide 25 mmol/L (22-30); Chloride 97 mmol/L (98-107); Estimated Creatinine Clearance 45 ml/min; Glucose 105 mg/dl (70-99); Sodium 129 mmol/L (135-145); Total Bilirubin 0.5 mg/dl (0.2-1.3); Total Protein 5.4 g/dl (6.3-8.2); eGFR > 60.00
[2024-05-12] MEDS: TYLENOL 1000 MG PO (08:14)
[2024-05-12] MEDS: SODIUM CHLORIDE 1 GRAM PO (08:17)
[2024-05-12] MEDS: VITAMIN D3 (cholecalciferol) 50 MCG PO (08:17)
[2024-05-12] MEDS: ZESTRIL 5 MG PO (08:17)
[2024-05-12] MEDS: THERAGRAN 1 TABLET PO (08:17)
[2024-05-12] MEDS: OSCAL 500 + D 500 MG PO (08:18)
[2024-05-12] MEDS: NORVASC 10 MG PO (08:18)
[2024-05-12] MEDS: PROTONIX 40 MG PO (08:19)
--- NOTE | 2024-05-12 11:04 | CM ---
Addendum entered by Susan Sparrow 05/12/24 14:30:
requested US be faxed to primary care office.
Addendum entered by Susan Sparrow 05/12/24 14:18:
PT/OT recommending home with VN.
patient chose [facility] VN

Original Note:
Patient seen bedside.
IA completed.
Patient from independent living at [facility].
Patient lives in apartment and is independent with ADLs.
Patient ambulates with a Rollator at baseline or rolling walker, she also has a quad came and handicap accessible bathroom.
Patient goes to the gym at [facility] 3x/week.
Per patient she would like to go home today, TT to MD and plan is for dc.
Per MD, ok to schedule transport for 2:30 pm, TC to [phone]- [facility] transportation, spoke with Trina, transport set up for 2:30 pm with poultry picker at the [facility] entrance, driver starting gate will call the floor when he arrives.
IMM completed.
PT/OT eval completed, notes pending.
Plan: home to [facility], no needs anticipated, but follow for PT/OT recommendations.
--- NOTE | 2024-05-12 11:07 | W.PN.HOSP.TC ---
Addendum entered and electronically signed by Frank Smyth MD 05/12/24 23:57:
Attending Addendum-
I saw and evaluated the patient. I reviewed the resident�s note and agree with findings and plan as documented in the resident�s note. Sub: Wants to go home. no further neuro deficits . Full 12 point ROS reviewed and negative except as documented
Exam- vitals reviewed in EMR GEN-NAD heart RRR lungs clear abd osft L Enoe alexandria Neuro AAo x 3 MS 5/ sensation intact
Plan:
# Syncope
- vasovagal
- cont stool softeners
- not orthostatic
- patient is fluid restricted on lasix and on flomax
- DC flomax DC lasix
- check carotid Doppler- right 50-70% left < 50% - follow UP as OP
- Head CT- no acute abnormalities
- SF syncope- low risk
- EKG reviewed 1rst degree heart block- likely not correlated
# Hyponatremia
- improved
- cont to monitor
- fluid restrict
- restart nacl tabs
- hold lasix
# HTN-
- cont norvasc and lisinopril
# GERD-
- cont esomeprazole
DVTp- lovenox
Dispo DC back to [facility]
Time spent coordinating care, DC planning, review of DC plan of care with resident, transition of care, review of records, med rec/scripts sent electronically, consults, notes, d/w consultants, nursing, family, and CM�35 mins
Original Note:
Today's Communication/Plan
-
Continue sodium chloride tablets.
plan for discharge after reviewing records
Assessment / Plan
Assessment / Plan
IMPRESSION: 88-year-old female with PMHx significant for SIADH, HTN, constipation, HLD presents to the hospital for evaluation of syncopal episode.
PLAN:
Syncope -
Suspect cardiac > neurological, EGSYS score -6 points.
Telemetry shows sinus arrythmia.
Telemetry monitoring - negative for any events overnight, Per patient echocardiogram, carotid ultrasound, Peripheral vascular ultrasound for DVT all are negative about one month ago.
neuro consulted, neuro on board appreciated inputs.
Ordered a carotid vascular ultrasound, results pending. Patient is stable for discharge after i review the records.
CT head obtained negative. Orthostatic vitals negative.
Neurology defers antiplatelet or anticoagulation therapy as there is no indication at this point of time.
NIH stroke score 0
Hyponatremia -
Acute on chronic, patient is on no doses 1000 mg every day.
Serum sodium at 129, fluid status-euvolemic
Euvolemic hyponatremia, continue trending electrolytes.
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
Hypertension-
On lisinopril 5 mg.
On amlodipine 10 mg
Questionable history of heart failure-
Lasix 10 mg, obtain echocardiogram.
Constipation-
On psyllium husk, and senna.
Hyperlipidemia-
Not on statins.
GERD-on esomeprazole 40 mg daily
Urinary incontinence-on tamsulosin 0.4 once a day
DVT prophylaxis-
Enoxaparin 40 SQ night
CODE STATUS-DO NOT RESUSCITATE
Anticipated Discharge: Today
Subjective/Interval History
-
Date of Service: May 12, 2024
No complaints today, wants to go home.
Objective Data
-
Labs:
Laboratory Results
05/12/24
06:40
WBC 5.7
Hgb 11.2 L
Hct 32.1 L
Plt Count 279
Sodium 129 L
Potassium 4.0
Chloride 97 L
Carbon Dioxide 25
BUN 21 H
Creatinine 0.7
Glucose 105 H
Calcium 8.7
Total Bilirubin 0.5
AST 23
ALT 15
Alkaline Phosphatase 55
Vital Signs:
Vital Signs
Temp Pulse Resp BP Pulse Ox
97.8 F 57 17 178/69 96
05/12/24 07:48 05/12/24 07:48 05/12/24 07:48 05/12/24 07:48 05/12/24 07:48
I&O
05/11/24 05/12/24 05/13/24
06:59 06:59 06:59
Intake Total 1220 / 1220
Balance 1220 / 1220
Review of Systems
-
History Source: Patient
All other systems: Reviewed and negative
Physical Exam
-
General: No Apparent Distress and Comfortable
HEENT: Moist Mucous Membranes
Respiratory: Clear to Auscultation; Negative Wheezes, Rales, Rhonchi or Crackles
Cardiac: Regular Rhythm, S1/S2 and Rub; Negative Murmur or Gallop
GI: Soft, Nontender, Nondistended and Normal Bowel Sounds
Musculoskeletal: No Clubbing, No Cyanosis and No Edema
Skin: Warm
Neuro: No Motor Deficits
Psych: Calm
Data Reviewed
-
Ultrasound: Image personally visualized and interpreted, Report Reviewed by me and Discussed with Physician
Medical Tests (Nuc Med, Echo etc): Image personally visualized and interpreted, Report Reviewed by me and Discussed with Physician
Labs: Labs Reviewed by me and Discussed with Physician
Old Records: Reviewed
== END 2024-05-12 14:49 | disposition home health service (06) | DRG 312 ==
LOC: 3 WEST ACU 15:34
PROVIDERS: Emergency Medicine; Nurse Practitioner; Student in an Organized Health Care Education/Training Program; ADMITTING PHYSICIAN Family Medicine; EMERGENCY PHYSICIAN Emergency Medicine; FAMILY PHYSICIAN Internal Medicine Geriatric Medicine; OTHER PHYSICIAN Psychiatry & Neurology Neurology
DX: R55 Syncope and collapse (principal); E87.1 Hypo-osmolality and hyponatremia; R47.01 Aphasia; E78.00 Pure hypercholesterolemia, unspecified; I50.9 Heart failure, unspecified; I11.0 Hypertensive heart disease with heart failure; K21.9 Gastro-esophageal reflux disease without esophagitis; K59.00 Constipation, unspecified; E86.1 Hypovolemia; R32 Unspecified urinary incontinence; M54.9 Dorsalgia, unspecified; K44.9 Diaphragmatic hernia without obstruction or gangrene; Z96.653 Presence of artificial knee joint, bilateral; Z66 Do not resuscitate; Z60.2 Problems related to living alone; Z87.891 Personal history of nicotine dependence; Z88.5 Allergy status to narcotic agent; Z88.8 Allergy status to other drugs, medicaments and biological substances
CPT/HCPCS: 70450; 80053; 81003; 81015; 82962; 84484; 85025; 85027; 85610; 85730; 92523; 92610; 93005; 93880; 96360; 97162; 97166; 99285